=== PATIENT | male | born 1945 | race Caucasian/White ===

== ENCOUNTER → 2017-01-03 | Outpatient (CLI) | payer MEDICARE, BC ==
[~2017-01-03] MED LIST: AMIO200T42 PO; AMIO400T4 PO; ASPI-515 PO; ATOR80TA75 PO; CLOP75TA PO; DOCU-30 PO; FELO10TA PO; GLIP10TA13 PO; INSU100V8 SQ; METF10002 PO; METO25TA91 PO; OMEP-110 PO; PROC10TA78 PO; SITA100T PO; TRAM-28 PO; VALS1TAB30 PO
== END | disposition home or self-care (01) ==
LOC: CFH 10:45
PROVIDERS: ATTEND Internal Medicine Cardiovascular Disease
DX: I25.10 Atherosclerotic heart disease of native coronary artery without angina pectoris (principal); I10 Essential (primary) hypertension
CPT/HCPCS: 93306

== ENCOUNTER → 2018-01-17 | Outpatient (CLI) | payer MEDICARE, BC ==
[~2018-01-17] MED LIST changes: -AMIO400T4 PO; +AMIO400T5 PO; +ATOR-2 PO; -ATOR80TA75 PO; +DOCU-131 PO; -DOCU-30 PO; -TRAM-28 PO; +TRAM-47 PO
== END | disposition home or self-care (01) ==
LOC: CVU 09:17
PROVIDERS: ATTEND Internal Medicine Cardiovascular Disease
DX: I65.23 Occlusion and stenosis of bilateral carotid arteries (principal); E11.9 Type 2 diabetes mellitus without complications; I25.10 Atherosclerotic heart disease of native coronary artery without angina pectoris; I10 Essential (primary) hypertension; Z95.1 Presence of aortocoronary bypass graft; Z87.891 Personal history of nicotine dependence
CPT/HCPCS: 93880

== ENCOUNTER → 2018-12-13 | Outpatient (CLI) | payer MEDICARE, BC ==
[~2018-12-13] MED LIST changes: +CHLO25TA PO; +DONE10TA14 PO; +GLIP5TAB10 BC; +GLIP5TAB10 PO; +INSU100I18 SQ; +IRBE300T16 PO; +SPIR25TA PO
== END | disposition home or self-care (01) ==
LOC: CFH 08:37
PROVIDERS: ATTEND Internal Medicine Cardiovascular Disease
DX: I08.3 Combined rheumatic disorders of mitral, aortic and tricuspid valves (principal); I10 Essential (primary) hypertension; E78.5 Hyperlipidemia, unspecified; Z95.1 Presence of aortocoronary bypass graft; Z95.818 Presence of other cardiac implants and grafts; Z87.891 Personal history of nicotine dependence
CPT/HCPCS: 93306

== ENCOUNTER 2018-12-14 17:12 | Inpatient (IN) | payer MEDICARE, BC ==
[~2018-12-14] VITALS: Ht 188 cm; Wt 103.6 kg
[~2018-12-14 17:12] MED LIST changes: -CHLO25TA PO; -DONE10TA14 PO; -GLIP5TAB10 BC; -GLIP5TAB10 PO; -INSU100I18 SQ; -IRBE300T16 PO; -SPIR25TA PO
[2018-12-14 18:16] VITALS: BP 133/88
[2018-12-14] MEDS ORDERED: PLEASE ENTER HEIGHT AND WEIGHT MC SCH (19:00)
[2018-12-14] MEDS ORDERED: ONDANSETRON 2MG/ML, 2ML IVPush PRN (19:00)
[2018-12-14] MEDS ORDERED: morphine SULFATE 10 MG/ML, 1ML IVPush PRN (19:00)
[2018-12-14 19:27] LABS: BASOPHILS # (AUTO) 0.09 x10^3/uL (0-0.1); BASOPHILS % (AUTO) 1 % (0-1); EOSINOPHILS # (AUTO) 0.36 x10^3/uL (0-0.4); EOSINOPHILS % (AUTO) 5 % (1-7); LYMPHOCYTES # (AUTO) 1.76 x10^3/uL (1-3.4); LYMPHOCYTES % (AUTO) 23 % (22-44); MD NO; MEAN CORPUSCULAR HEMOGLOBIN 32.1 pg (27.5-34.5); MEAN CORPUSCULAR HGB CONC 33.6 g/dL (33.2-36.2); MEAN CORPUSCULAR VOLUME 95.5 fL (81-97); MEAN PLATELET VOLUME 9.5 fL (7.4-10.4); MONOCYTES # (AUTO) 0.94 x10^3/uL (0.2-0.8); MONOCYTES % (AUTO) 12 % (2-9); NEUTROPHILS # (AUTO) 4.57 x10^3/uL (1.8-6.8); NEUTROPHILS % (AUTO) 59 % (42-75); PLATELET COUNT 223 x10^3/uL (130-400); RED BLOOD COUNT 4.32 x10^6/uL (4.38-5.82); RED CELL DISTRIBUTION WIDTH 13.9 % (9.4-14.8)
[2018-12-14 19:33] LABS: INTERNATIONAL NORMALIZED RATIO 1.04 (0.93-1.1); PROTHROMBIN TIME 10.9 Seconds (9.6-11.5)
[2018-12-14 19:36] LABS: ANION GAP 7 mmol/L (5-15); CALCIUM 8.9 mg/dL (8.5-10.1); CHLORIDE 111 mmol/L (98-107); CREATININE 0.94 mg/dL (0.7-1.3)
[2018-12-14] MEDS ORDERED: DONE10TA14 PO (19:57)
[2018-12-14] MEDS ORDERED: IRBE300T16 PO (19:57)
[2018-12-14] MEDS ORDERED: GLIP5TAB10 PO (19:57)
[2018-12-14] MEDS ORDERED: CHLO25TA PO (19:57)
[2018-12-14] MEDS ORDERED: INSU100I18 SQ (19:57)
[2018-12-14] MEDS ORDERED: GLIP5TAB10 BC (19:57)
[2018-12-14] MEDS: ATORVASTATIN 80 MG TABLET PO SCH (20:41)
[2018-12-14] MEDS ORDERED: INSULIN GLARGINE 100 UNITS/ML, PEN SQ-INSULIN SCH (21:00)
[2018-12-14] MEDS: INSULIN GLARGINE 100 UNITS/ML, PEN SQ-INSULIN SCH (23:55)
[2018-12-14] MEDS: INSULIN LISPRO 100 UNITS/ML, PEN SQ-INSULIN SCH (23:55)
[2018-12-15 01:12] VITALS: BP 135/80
[2018-12-15 04:44] LABS: BASOPHILS # (AUTO) 0.08 x10^3/uL (0-0.1); BASOPHILS % (AUTO) 1 % (0-1); EOSINOPHILS # (AUTO) 0.49 x10^3/uL (0-0.4); EOSINOPHILS % (AUTO) 6 % (1-7); LYMPHOCYTES # (AUTO) 1.35 x10^3/uL (1-3.4); LYMPHOCYTES % (AUTO) 17 % (22-44); MD NO; MEAN CORPUSCULAR HEMOGLOBIN 31.7 pg (27.5-34.5); MEAN CORPUSCULAR VOLUME 96.1 fL (81-97); MONOCYTES # (AUTO) 1.09 x10^3/uL (0.2-0.8); MONOCYTES % (AUTO) 14 % (2-9); NEUTROPHILS # (AUTO) 5.01 x10^3/uL (1.8-6.8); NEUTROPHILS % (AUTO) 63 % (42-75); PLATELET COUNT 220 x10^3/uL (130-400); RED BLOOD COUNT 4.33 x10^6/uL (4.38-5.82); RED CELL DISTRIBUTION WIDTH 13.6 % (9.4-14.8)
[2018-12-15 04:53] LABS: ANION GAP 7 mmol/L (5-15); CALCIUM 8.9 mg/dL (8.5-10.1); CHLORIDE 112 mmol/L (98-107); CREATININE 0.88 mg/dL (0.7-1.3)
[2018-12-15 04:57] LABS: TROPONIN I 0.033 ng/mL (0.000-0.045)
[2018-12-15] MEDS: INSULIN LISPRO 100 UNITS/ML, PEN SQ-INSULIN SCH ×4 (07:00→21:07)
[2018-12-15 07:32] VITALS: BP 148/86
[2018-12-15] MEDS: CHLORTHALIDONE 25 MG TABLET PO SCH (08:41)
[2018-12-15] MEDS ORDERED: ASPIRIN 81 MG TABLET EC PO SCH (09:00)
[2018-12-15 12:32] VITALS: BP 142/88
[2018-12-15] MEDS: HEPARIN 5,000 UNITS/ML, 1ML SQ SCH ×2 (13:30→21:07)
[2018-12-15 19:43] VITALS: BP 138/85
[2018-12-15] MEDS: INSULIN GLARGINE 100 UNITS/ML, PEN SQ-INSULIN SCH (21:06)
[2018-12-15] MEDS: ASPIRIN 81 MG TABLET EC PO SCH (21:06)
[2018-12-15] MEDS: ATORVASTATIN 80 MG TABLET PO SCH (21:06)
[2018-12-16 02:51] VITALS: BP 129/72
[2018-12-16 06:14] VITALS: BP 137/86
[2018-12-16] MEDS: METOPROLOL SUCCINATE 100 MG TAB.ER.24H PO SCH (06:15)
[2018-12-16] MEDS: HEPARIN 5,000 UNITS/ML, 1ML SQ SCH ×3 (06:17→21:43)
[2018-12-16] MEDS: INSULIN LISPRO 100 UNITS/ML, PEN SQ-INSULIN SCH ×4 (07:00→21:42)
[2018-12-16] MEDS: CHLORTHALIDONE 25 MG TABLET PO SCH (07:45)
[2018-12-16 08:19] VITALS: BP 142/79
[2018-12-16 13:45] VITALS: BP 111/69
[2018-12-16 19:48] VITALS: BP 127/77
[2018-12-16] MEDS: ASPIRIN 81 MG TABLET EC PO SCH (21:14)
[2018-12-16] MEDS: ATORVASTATIN 80 MG TABLET PO SCH (21:14)
[2018-12-16] MEDS: INSULIN GLARGINE 100 UNITS/ML, PEN SQ-INSULIN SCH (21:42)
[2018-12-17 00:58] VITALS: BP 142/83
[2018-12-17 06:20] VITALS: BP 113/55
[2018-12-17] MEDS: METOPROLOL SUCCINATE 100 MG TAB.ER.24H PO SCH (06:21)
[2018-12-17] MEDS: HEPARIN 5,000 UNITS/ML, 1ML SQ SCH ×3 (06:22→20:51)
[2018-12-17 06:35] VITALS: BP 123/82
[2018-12-17] MEDS: INSULIN LISPRO 100 UNITS/ML, PEN SQ-INSULIN SCH ×4 (07:00→20:51)
[2018-12-17] MEDS: SPIRONOLACTONE 25 MG TABLET PO SCH (07:46)
[2018-12-17] MEDS: SODIUM CHLORIDE 0.9% 1,000 ML IV SCH (11:00)
[2018-12-17 12:23] VITALS: BP 111/73
[2018-12-17] MEDS ORDERED: MIDAZOLAM 1 MG/ML, 2ML ONE (12:39)
[2018-12-17] MEDS ORDERED: FENTANYL PF 100 MCG/2ML ONE (12:40)
[2018-12-17] MEDS ORDERED: LIDOCAINE 1%, 20ML ONE (12:40)
[2018-12-17] MEDS ORDERED: HEPARIN 1,000 UNITS/ML, 10ML ONE (13:08)
[2018-12-17 19:02] VITALS: BP 128/78
[2018-12-17] MEDS ORDERED: hydrALAzine 20 MG/ML, 1ML IV PRN (20:00)
[2018-12-17] MEDS: ASPIRIN 81 MG TABLET EC PO SCH (20:50)
[2018-12-17] MEDS: ATORVASTATIN 80 MG TABLET PO SCH (20:50)
[2018-12-17] MEDS: INSULIN GLARGINE 100 UNITS/ML, PEN SQ-INSULIN SCH (20:51)
[2018-12-17] MEDS ORDERED: TEMAZEPAM 15 MG CAPSULE PO PRN (21:00)
[2018-12-18 01:12] VITALS: BP 136/71
[2018-12-18 05:02] LABS: CALCIUM 8.7 mg/dL (8.5-10.1); CHLORIDE 108 mmol/L (98-107)
[2018-12-18 05:05] LABS: CREATININE 0.94 mg/dL (0.7-1.3)
[2018-12-18 05:06] LABS: ANION GAP 7 mmol/L (5-15)
[2018-12-18] MEDS: HEPARIN 5,000 UNITS/ML, 1ML SQ SCH ×2 (05:30→11:30)
[2018-12-18] MEDS: INSULIN LISPRO 100 UNITS/ML, PEN SQ-INSULIN SCH ×2 (07:00→11:30)
[2018-12-18] MEDS: SPIRONOLACTONE 25 MG TABLET PO SCH (07:18)
[2018-12-18 07:37] VITALS: BP 127/71
[2018-12-18] MEDS: METOPROLOL SUCCINATE 100 MG TAB.ER.24H PO SCH (08:36)
[2018-12-18] MEDS ORDERED: DOBUTAMINE/D5W PMX 250 ML ONE (09:17)
[2018-12-18] MEDS ORDERED: ATROPINE SYRINGE 0.1 MG/ML, 10ML ONE (09:18)
[2018-12-18] MEDS: SODIUM CHLORIDE 0.9% 1,000 ML IV SCH (11:30)
[2018-12-18] MEDS ORDERED: SPIR25TA PO (11:55)
[2018-12-19] MEDS ORDERED: FUROSEMIDE 20 MG TABLET PO SCH (09:00)
== END 2018-12-18 16:20 | disposition home or self-care (01) | DRG 286 ==
LOC: 5SO 18:11 → DCLOUNGE 12-18 16:00
PROVIDERS: ADMIT Internal Medicine; ATTEND Internal Medicine
PROC: 4A023N7 Measurement of Cardiac Sampling and Pressure, Left Heart, Percutaneous Approach (ICD-10-PCS; principal; 2018-12-17)
PROC: B2181ZZ Fluoroscopy of Left Internal Mammary Bypass Graft using Low Osmolar Contrast (ICD-10-PCS; 2018-12-17)
PROC: B2131ZZ Fluoroscopy of Multiple Coronary Artery Bypass Grafts using Low Osmolar Contrast (ICD-10-PCS; 2018-12-17)
PROC: B2111ZZ Fluoroscopy of Multiple Coronary Arteries using Low Osmolar Contrast (ICD-10-PCS; 2018-12-17)
PROC: B2151ZZ Fluoroscopy of Left Heart using Low Osmolar Contrast (ICD-10-PCS; 2018-12-17)
DX: I08.0 Rheumatic disorders of both mitral and aortic valves (principal); I50.43 Acute on chronic combined systolic (congestive) and diastolic (congestive) heart failure; I25.110 Atherosclerotic heart disease of native coronary artery with unstable angina pectoris; I11.0 Hypertensive heart disease with heart failure; E11.9 Type 2 diabetes mellitus without complications; E78.5 Hyperlipidemia, unspecified; F41.9 Anxiety disorder, unspecified; I25.5 Ischemic cardiomyopathy; I25.82 Chronic total occlusion of coronary artery; Z79.4 Long term (current) use of insulin; Z79.82 Long term (current) use of aspirin; Z79.899 Other long term (current) drug therapy; Z87.891 Personal history of nicotine dependence
CPT/HCPCS: 36415; 80048; 82962; 83735; 83880; 84484; 85025; 85610; 93017; 93350; 93459; 99156; 99157; C1760; C1769; C1894; G0378; J0461; J1644; J2250; J3010; J1250; J1815; J7030; Q9967

== ENCOUNTER → 2018-12-26 | Outpatient (CLI) | payer MEDICARE, BC ==
[~2018-12-26] MED LIST changes: +CHLO25TA PO; +DONE10TA14 PO; +GLIP5TAB10 BC; +GLIP5TAB10 PO; +INSU100I18 SQ; +IRBE300T16 PO; +OMNIPAQUE 350 MG/ML, 150 ML BOTTLE ONE; +SPIR25TA PO
== END | disposition home or self-care (01) ==
LOC: CVU 11:37
PROVIDERS: ATTEND Internal Medicine Cardiovascular Disease
DX: I65.23 Occlusion and stenosis of bilateral carotid arteries (principal); N28.1 Cyst of kidney, acquired; I70.203 Unspecified atherosclerosis of native arteries of extremities, bilateral legs; I35.0 Nonrheumatic aortic (valve) stenosis; E11.9 Type 2 diabetes mellitus without complications; I50.42 Chronic combined systolic (congestive) and diastolic (congestive) heart failure; I10 Essential (primary) hypertension; Z95.1 Presence of aortocoronary bypass graft
CPT/HCPCS: 71275; 74174; 93880; 94060; 94726; 94729; Q9967

== ENCOUNTER 2019-01-01 06:04 | Inpatient (IN) | payer MEDICARE, BC ==
[~2019-01-01] VITALS: Ht 188 cm; Wt 69.7 kg
[~2019-01-01 06:04] MED LIST changes: -OMNIPAQUE 350 MG/ML, 150 ML BOTTLE ONE
[2019-01-01] MEDS ORDERED: SODIUM CHLORIDE 0.9% 1,000 ML IV ONE (06:13)
[2019-01-01 06:23] VITALS: BP 136/80
[2019-01-01] MEDS ORDERED: CHLORHEXIDINE 15 ML UDC MM PRN (06:30)
[2019-01-01] MEDS ORDERED: ONDANSETRON 2MG/ML, 2ML IVPush PRN ×2 (06:30→09:00)
[2019-01-01] MEDS ORDERED: FENTANYL PF 250 MCG/5ML ONE (07:11)
[2019-01-01 07:14] LABS: BASOPHILS % (AUTO) 1 % (0-1); EOSINOPHILS # (AUTO) 0.61 x10^3/uL (0-0.4); EOSINOPHILS % (AUTO) 9 % (1-7); LYMPHOCYTES # (AUTO) 1.88 x10^3/uL (1-3.4); LYMPHOCYTES % (AUTO) 26 % (22-44); MD NO; MEAN CORPUSCULAR HEMOGLOBIN 31.8 pg (27.5-34.5); MEAN CORPUSCULAR HGB CONC 33.2 g/dL (33.2-36.2); MEAN CORPUSCULAR VOLUME 95.8 fL (81-97); MEAN PLATELET VOLUME 10.2 fL (7.4-10.4); MONOCYTES # (AUTO) 0.97 x10^3/uL (0.2-0.8); MONOCYTES % (AUTO) 14 % (2-9); NEUTROPHILS # (AUTO) 3.62 x10^3/uL (1.8-6.8); NEUTROPHILS % (AUTO) 50 % (42-75); PLATELET COUNT 250 x10^3/uL (130-400); RED BLOOD COUNT 4.64 x10^6/uL (4.38-5.82); RED CELL DISTRIBUTION WIDTH 13.4 % (9.4-14.8)
[2019-01-01 07:20] LABS: INTERNATIONAL NORMALIZED RATIO 0.96 (0.93-1.1); PROTHROMBIN TIME 10.1 Seconds (9.6-11.5)
[2019-01-01 07:22] LABS: ALANINE AMINOTRANSFERASE 53 U/L (12-78); ALBUMIN 3.6 g/dL (3.4-5.0); ANION GAP 6 mmol/L (5-15); CALCIUM 8.8 mg/dL (8.5-10.1); CHLORIDE 106 mmol/L (98-107); CREATININE 1.15 mg/dL (0.7-1.3)
[2019-01-01 07:26] LABS: ALKALINE PHOSPHATASE 99 U/L (45-117); BILIRUBIN,TOTAL 0.8 mg/dL (0.2-1.0); TOTAL PROTEIN 7.3 g/dL (6.4-8.2)
[2019-01-01] MEDS ORDERED: hydrALAzine 20 MG/ML, 1ML IVPush PRN (09:00)
[2019-01-01] MEDS ORDERED: LABETALOL 20 MG/4 ML IVPush PRN (09:00)
[2019-01-01] MEDS ORDERED: HYDROcodone/APAP 5/325 TABLET PO PRN (09:00)
[2019-01-01] MEDS ORDERED: LABETALOL 5 MG/ML SYRINGE IVPush PRN (09:30)
[2019-01-01] MEDS: DONEPEZIL 10 MG TABLET PO SCH (10:58)
[2019-01-01] MEDS: SPIRONOLACTONE 25 MG TABLET PO SCH (10:59)
[2019-01-01] MEDS: METOPROLOL SUCCINATE 100 MG TAB.ER.24H PO SCH (10:59)
[2019-01-01 11:23] VITALS: BP 130/76
[2019-01-01] MEDS: INSULIN REGULAR 100 UNITS/ML, 3ML VIAL SQ-INSULIN SCH ×3 (12:03→20:49)
[2019-01-01 14:29] VITALS: BP 123/68
[2019-01-01] MEDS ORDERED: PROPOFOL 10 MG/ML, 20ML ONE (14:34)
[2019-01-01] MEDS ORDERED: SUCCINYLCHOLINE 20 MG/ML, 10ML ONE (14:34)
[2019-01-01] MEDS ORDERED: CEFAZOLIN 1,000 MG ONE (14:34)
[2019-01-01] MEDS ORDERED: ROCURONIUM 10MG/ML,5ML ONE (14:34)
[2019-01-01] MEDS ORDERED: INSULIN LISPRO 100 UNITS/ML, PEN SQ-INSULIN SCH (17:00)
[2019-01-01 21:00] VITALS: BP 139/77
[2019-01-01] MEDS ORDERED: INSULIN GLARGINE 100 UNITS/ML, PEN SQ-INSULIN SCH (21:00)
[2019-01-01] MEDS ORDERED: ATORVASTATIN 80 MG TABLET PO SCH (21:00)
[2019-01-01] MEDS ORDERED: CLOPIDOGREL 300 MG TABLET PO ONE (21:00)
[2019-01-02 02:16] VITALS: BP 148/80
[2019-01-02] MEDS: ACETAMINOPHEN 325 MG TABLET PO PRN ×2 (04:49→09:29)
[2019-01-02 06:37] LABS: BASOPHILS # (AUTO) 0.09 x10^3/uL (0-0.1); BASOPHILS % (AUTO) 1 % (0-1); EOSINOPHILS # (AUTO) 0.32 x10^3/uL (0-0.4); EOSINOPHILS % (AUTO) 3 % (1-7); LYMPHOCYTES # (AUTO) 1.71 x10^3/uL (1-3.4); LYMPHOCYTES % (AUTO) 16 % (22-44); MD NO; MEAN CORPUSCULAR HEMOGLOBIN 31.5 pg (27.5-34.5); MEAN CORPUSCULAR HGB CONC 33.1 g/dL (33.2-36.2); MEAN CORPUSCULAR VOLUME 95.2 fL (81-97); MEAN PLATELET VOLUME 9.9 fL (7.4-10.4); MONOCYTES # (AUTO) 1.32 x10^3/uL (0.2-0.8); MONOCYTES % (AUTO) 13 % (2-9); NEUTROPHILS % (AUTO) 67 % (42-75); PLATELET COUNT 229 x10^3/uL (130-400); RED BLOOD COUNT 4.36 x10^6/uL (4.38-5.82); RED CELL DISTRIBUTION WIDTH 13.4 % (9.4-14.8)
[2019-01-02 06:42] LABS: ANION GAP 7 mmol/L (5-15); CALCIUM 8.9 mg/dL (8.5-10.1); CHLORIDE 109 mmol/L (98-107); CREATININE 0.92 mg/dL (0.7-1.3)
[2019-01-02] MEDS: INSULIN REGULAR 100 UNITS/ML, 3ML VIAL SQ-INSULIN SCH ×2 (07:00→11:00)
[2019-01-02 07:05] VITALS: BP 120/74
[2019-01-02] MEDS: DONEPEZIL 10 MG TABLET PO SCH (08:48)
[2019-01-02] MEDS: SPIRONOLACTONE 25 MG TABLET PO SCH (08:48)
[2019-01-02] MEDS: METOPROLOL SUCCINATE 100 MG TAB.ER.24H PO SCH (08:49)
[2019-01-02] MEDS ORDERED: CLOPIDOGREL 75 MG TABLET PO SCH (09:00)
[2019-01-02] MEDS ORDERED: ASPIRIN 81 MG TABLET EC PO SCH (09:00)
[2019-01-02] MEDS ORDERED: CLOP75TA PO (10:24)
[2019-01-02] MEDS ORDERED: IRBE150T49 PO (10:24)
[2019-01-02] MEDS ORDERED: ACET325T14 PO (10:24)
== END 2019-01-02 13:18 | disposition home or self-care (01) | DRG 266 ==
LOC: ORIP 06:04 → ICU 08:48 → 5SO 11:08 → DCLOUNGE 01-02 13:02
PROVIDERS: ADMIT Internal Medicine Cardiovascular Disease; ATTEND Internal Medicine Cardiovascular Disease
PROC: B246ZZ4 Ultrasonography of Right and Left Heart, Transesophageal (ICD-10-PCS; 2019-01-01)
PROC: 03HY32Z Insertion of Monitoring Device into Upper Artery, Percutaneous Approach (ICD-10-PCS; 2019-01-01)
PROC: 02RF38Z Replacement of Aortic Valve with Zooplastic Tissue, Percutaneous Approach (ICD-10-PCS; principal; 2019-01-01 07:30)
DX: I35.0 Nonrheumatic aortic (valve) stenosis (principal); Z00.6 Encounter for examination for normal comparison and control in clinical research program; I50.43 Acute on chronic combined systolic (congestive) and diastolic (congestive) heart failure; I25.10 Atherosclerotic heart disease of native coronary artery without angina pectoris; E11.9 Type 2 diabetes mellitus without complications; I48.0 Paroxysmal atrial fibrillation; E78.5 Hyperlipidemia, unspecified; I34.0 Nonrheumatic mitral (valve) insufficiency; I10 Essential (primary) hypertension; Z95.1 Presence of aortocoronary bypass graft; Z88.6 Allergy status to analgesic agent
CPT/HCPCS: 33361; 36415; 80048; 80053; 82962; 83880; 85025; 85347; 85610; 85730; 86850; 86900; 86923; 87081; 93005; 93306; 93312; 93321; 93325; 93355; C1760; C1769; C1894; G0378; J0690; J2704; J3010; J0330; J1815; J7030; Q9967

== ENCOUNTER → 2019-02-05 | Outpatient (CLI) | payer MEDICARE, BC ==
[~2019-02-05] MED LIST changes: +ACET325T14 PO; +IRBE150T49 PO
== END | disposition home or self-care (01) ==
LOC: CVU 10:32
PROVIDERS: ATTEND Internal Medicine Cardiovascular Disease
DX: I34.0 Nonrheumatic mitral (valve) insufficiency (principal); I10 Essential (primary) hypertension; E78.5 Hyperlipidemia, unspecified
CPT/HCPCS: 93306

== ENCOUNTER → 2019-10-10 | Outpatient (CLI) | payer MEDICARE, BC | END | disposition home or self-care (01) | LOC: CFH 06:54 | PROVIDERS: ATTEND Internal Medicine Cardiovascular Disease | DX: I08.1 Rheumatic disorders of both mitral and tricuspid valves (principal); I11.9 Hypertensive heart disease without heart failure; E78.5 Hyperlipidemia, unspecified; Z95.1 Presence of aortocoronary bypass graft | CPT/HCPCS: 93306 ==

== ENCOUNTER → 2019-11-01 | Outpatient (CLI) | payer MEDICARE, BC ==
[~2019-11-01] MED LIST changes: -FELO10TA PO; +FELO10TA4 PO; -IRBE300T16 PO; +IRBE300T8 PO; +REGADENOSON 0.4 MG/5 ML SYRINGE ONE
== END | disposition home or self-care (01) ==
LOC: CFH 11:52
PROVIDERS: ATTEND Internal Medicine Cardiovascular Disease
DX: I21.29 ST elevation (STEMI) myocardial infarction involving other sites (principal); I25.9 Chronic ischemic heart disease, unspecified; I42.9 Cardiomyopathy, unspecified; R06.02 Shortness of breath; I25.729 Atherosclerosis of autologous artery coronary artery bypass graft(s) with unspecified angina pectoris
CPT/HCPCS: 78452; 93017; A9502; J2785

== ENCOUNTER 2019-11-20 11:11 | Emergency (ER) | payer MEDICARE, BC ==
[~2019-11-20] VITALS: Ht 188 cm; Wt 96.8 kg
[~2019-11-20 11:11] MED LIST changes: -REGADENOSON 0.4 MG/5 ML SYRINGE ONE
--- NOTE | 2019-11-20 11:50 | NUR ---
PT AMBULATED TO THE BATHROOM WITH A STEADY GAIT. PER PTS ; PT IN FOR INCREASING PALPITATIONS AND INCREASING SHORTNESS OF BREATH.
[2019-11-20] MEDS ORDERED: SODIUM CHLORIDE FLUSH 10ML SYR IVF ONE (12:00)
[2019-11-20] MEDS ORDERED: METO200T47 PO (12:04)
[2019-11-20] MEDS ORDERED: INSU100V8 SQ (12:04)
[2019-11-20] MEDS ORDERED: SPIR25TA5 PO (12:19)
[2019-11-20 12:45] LABS: BASOPHILS # (AUTO) 0.09 x10^3/uL (0-0.1); BASOPHILS % (AUTO) 1 % (0-1); EOSINOPHILS # (AUTO) 0.39 x10^3/uL (0-0.4); EOSINOPHILS % (AUTO) 6 % (1-7); LYMPHOCYTES # (AUTO) 0.95 x10^3/uL (1-3.4); LYMPHOCYTES % (AUTO) 15 % (22-44); MD NO; MEAN CORPUSCULAR HEMOGLOBIN 31.1 pg (27.5-34.5); MEAN CORPUSCULAR HGB CONC 33.1 g/dL (33.2-36.2); MEAN CORPUSCULAR VOLUME 94.2 fL (81-97); MEAN PLATELET VOLUME 10.2 fL (7.4-10.4); MONOCYTES # (AUTO) 0.79 x10^3/uL (0.2-0.8); MONOCYTES % (AUTO) 13 % (2-9); NEUTROPHILS # (AUTO) 4.14 x10^3/uL (1.8-6.8); NEUTROPHILS % (AUTO) 65 % (42-75); PLATELET COUNT 221 x10^3/uL (130-400); RED CELL DISTRIBUTION WIDTH 17.6 % (9.4-14.8)
[2019-11-20 12:58] LABS: ANION GAP 9 mmol/L (5-15); CHLORIDE 107 mmol/L (98-107)
[2019-11-20 13:04] LABS: ALANINE AMINOTRANSFERASE 56 U/L (12-78); ALKALINE PHOSPHATASE 250 U/L (45-117); BILIRUBIN,TOTAL 1.7 mg/dL (0.2-1.0); CREATININE 1.13 mg/dL (0.7-1.3); T4 (THYROXINE) 10.3 mcg/dL (4.5-12.1); TOTAL PROTEIN 6.9 g/dL (6.4-8.2)
[2019-11-20] MEDS ORDERED: SODIUM CHLORIDE 0.9%, 500ML IVBOLUS ONE (13:30)
[2019-11-20] MEDS ORDERED: MAGNESIUM SULFATE PMX 2GM/50ML 50 ML IV ONE (13:30)
--- NOTE | 2019-11-20 14:11 | NUR ---
Son and at bedside. Medicated per emar. pt requesting food and inquiring if will be admitted.
--- NOTE | 2019-11-20 14:40 | NUR ---
Discussed discharge paperwork with pt and pts . Perscripition give. All questions and concerns addressed and answered. pt and pts verbalized understanding regarding discharge process and that they can discharge after IV mag and NS is compelted.
[2019-11-20 14:54] VITALS: BP 109/76
--- NOTE | 2019-11-20 16:46 | NUR ---
Patient/Caregiver given discharge instructions and they have confirmed that they understand the instructions. Patient ambulatory with steady gait.
== END 2019-11-20 16:47 | disposition home or self-care (01) ==
LOC: ED 15:08
DX: E83.42 Hypomagnesemia (principal); I11.0 Hypertensive heart disease with heart failure; I50.9 Heart failure, unspecified; R06.00 Dyspnea, unspecified; I25.10 Atherosclerotic heart disease of native coronary artery without angina pectoris; E11.9 Type 2 diabetes mellitus without complications; E78.5 Hyperlipidemia, unspecified; Z87.891 Personal history of nicotine dependence; Z95.1 Presence of aortocoronary bypass graft
CPT/HCPCS: 36415; 71045; 80053; 83605; 83735; 83880; 84436; 84443; 84484; 85025; 93005; 96365; 99285; J3475; J7040

== ENCOUNTER → 2020-03-18 | Outpatient (CLI) | payer MEDICARE, BC ==
[~2020-03-18] MED LIST changes: +METO200T47 PO; +SPIR25TA5 PO
== END | disposition home or self-care (01) ==
LOC: CVU 08:31
PROVIDERS: ATTEND Internal Medicine Cardiovascular Disease
DX: I08.0 Rheumatic disorders of both mitral and aortic valves (principal); I10 Essential (primary) hypertension
CPT/HCPCS: 93306; 93356

== ENCOUNTER 2020-07-30 10:48 | Day surgery (SDC) | payer MEDICARE, BC ==
[~2020-07-30] VITALS: Ht 188 cm; Wt 104.5 kg
[2020-07-30] MEDS ORDERED: L.AC1CAP6 PO (11:29)
[2020-07-30] MEDS ORDERED: SACU1TAB7 PO (11:29)
[2020-07-30] MEDS ORDERED: AMIO200T42 PO (11:29)
[2020-07-30] MEDS ORDERED: FURO20TA3 PO (11:29)
[2020-07-30] MEDS ORDERED: LIPA1CAP45 PO (11:29)
[2020-07-30] MEDS ORDERED: ONDA4TAB13 SL (11:29)
[2020-07-30] MEDS ORDERED: RIVA20TA PO (11:29)
[2020-07-30] MEDS ORDERED: CLOP75TA PO (11:29)
[2020-07-30] MEDS ORDERED: MAGN400T36 PO (11:29)
[2020-07-30] MEDS ORDERED: PLEASE ENTER HEIGHT AND WEIGHT MC SCH (11:30)
[2020-07-30] MEDS ORDERED: SODIUM CHLORIDE 0.9% 1,000 ML IV SCH (11:30)
[2020-07-30] MEDS ORDERED: SODIUM CHLORIDE 0.9% 1,000 ML IV ONE (11:30)
[2020-07-30 11:32] VITALS: BP 151/70
[2020-07-30 12:18] LABS: MEAN CORPUSCULAR HEMOGLOBIN 34.1 pg (27.5-34.5); MEAN CORPUSCULAR HGB CONC 33.5 g/dL (33.2-36.2); PLATELET COUNT 122 x10^3/uL (130-400); RED BLOOD COUNT 4.15 x10^6/uL (4.38-5.82); RED CELL DISTRIBUTION WIDTH 13.2 % (9.4-14.8)
[2020-07-30] MEDS ORDERED: ISOPROTERENOL 0.2MG/ML, 5ML ONE (12:26)
[2020-07-30] MEDS ORDERED: FENTANYL PF 100 MCG/2ML ONE (12:26)
[2020-07-30] MEDS ORDERED: ADENOSINE 6 MG/2 ML ONE (12:26)
[2020-07-30] MEDS ORDERED: MIDAZOLAM 1 MG/ML, 5ML ONE (12:26)
[2020-07-30] MEDS ORDERED: LIDOCAINE 2%, 20ML ONE (12:27)
[2020-07-30 12:29] LABS: INTERNATIONAL NORMALIZED RATIO 1.08 (0.93-1.1)
[2020-07-30 12:32] LABS: ANION GAP 6 mmol/L (5-15); CALCIUM 8.6 mg/dL (8.5-10.1); CHLORIDE 114 mmol/L (98-107)
[2020-07-30 12:44] LABS: PROTHROMBIN TIME 11.4 Seconds (9.6-11.5)
[2020-07-30] MEDS ORDERED: MIDAZOLAM 1 MG/ML, 2ML ONE (12:50)
[2020-07-30] MEDS ORDERED: FENTANYL PF 250 MCG/5ML ONE (12:50)
[2020-07-30] MEDS ORDERED: PROPOFOL 50 ML ONE (12:50)
[2020-07-30 12:51] LABS: MD YES
[2020-07-30 12:52] LABS: BAND#(MANUAL) 0.35 x10^3/uL; BANDS%(MANUAL) 5 % (0-7); EOS#(MANUAL) 1.38 x10^3/uL (0.0-0.4); EOS% (MANUAL) 20 % (1-7); LYMPH#(MANUAL) 1.38 x10^3/uL (1-3.4); LYMPHS% (MANUAL) 20 % (22-44); MONOS% (MANUAL) 13 % (2-9); SEGS% (MANUAL) 42 % (42-75)
[2020-07-30 12:53] LABS: <PLATELET ESTIMATE> DECREASED; <PLT MORPHOLOGY> NORMAL PLT MORPH; ANISOCYTOSIS 1+
[2020-07-30] MEDS ORDERED: DEXAMETHASONE 4 MG/ML, 1ML ONE (12:56)
[2020-07-30] MEDS ORDERED: ROCURONIUM 10 MG/ML,10ML ONE (12:56)
[2020-07-30] MEDS ORDERED: ONDANSETRON 2MG/ML, 2ML ONE (12:56)
[2020-07-30] MEDS ORDERED: SUCCINYLCHOLINE 20 MG/ML, 10ML ONE (12:56)
[2020-07-30] MEDS ORDERED: DIPHENHYDRAMINE 50 MG/ML, 1ML IVPush PRN (15:00)
[2020-07-30] MEDS ORDERED: EPHEDRINE 50 MG/ML, 1ML IM PRN (15:00)
[2020-07-30] MEDS ORDERED: FENTANYL PF 100 MCG/2ML IV PRN (15:00)
[2020-07-30] MEDS ORDERED: OXYcodone 5 MG/5 ML ORAL.SOL UDC PO PRN (15:00)
[2020-07-30] MEDS ORDERED: EPHEDRINE 50 MG/ML, 1ML IVPush PRN (15:00)
[2020-07-30] MEDS ORDERED: ACETAMINOPHEN 325 MG TABLET PO PRN (15:00)
[2020-07-30] MEDS ORDERED: PROMETHAZINE 25 MG/ML, 1ML IVPush PRN (15:00)
[2020-07-30] MEDS ORDERED: DIAZEPAM 5 MG/ML, 2ML IVPush PRN (15:00)
[2020-07-30] MEDS ORDERED: ONDANSETRON 2MG/ML, 2ML IVPush PRN (15:00)
[2020-07-30] MEDS ORDERED: morphine SULFATE 10 MG/ML, 1ML IVPush PRN (15:00)
[2020-07-30] MEDS ORDERED: EPHEDRINE 50 MG/ML, 1ML ONE ×2 (15:11→15:34)
== END 2020-07-30 21:05 | disposition home or self-care (01) ==
LOC: CACL 10:48 → 5SO 16:03 → CACL 21:05
PROVIDERS: ATTEND Internal Medicine Clinical Cardiac Electrophysiology
DX: I48.92 Unspecified atrial flutter (principal); I42.9 Cardiomyopathy, unspecified; I25.10 Atherosclerotic heart disease of native coronary artery without angina pectoris; I34.0 Nonrheumatic mitral (valve) insufficiency; I11.0 Hypertensive heart disease with heart failure; I50.9 Heart failure, unspecified; E78.5 Hyperlipidemia, unspecified; E11.9 Type 2 diabetes mellitus without complications; Z79.01 Long term (current) use of anticoagulants; Z79.4 Long term (current) use of insulin; Z79.899 Other long term (current) drug therapy; Z88.5 Allergy status to narcotic agent; Z95.5 Presence of coronary angioplasty implant and graft; Z95.2 Presence of prosthetic heart valve
CPT/HCPCS: 36415; 71046; 80048; 85025; 85610; 93005; 93312; 93321; 93325; 93613; 93653; C1730; C1732; C1769; C1894; J0330; J1100; J2250; J2405; J2704; J3010; G0378; J0153

== ENCOUNTER 2020-08-28 06:01 | Observation (INO) | payer MEDICARE, BC ==
[~2020-08-28] VITALS: Ht 188 cm; Wt 97.8 kg
[~2020-08-28 06:01] MED LIST changes: +FURO20TA3 PO; +L.AC1CAP6 PO; +LIPA1CAP45 PO; +MAGN400T36 PO; +ONDA4TAB13 SL; +RIVA20TA PO; +SACU1TAB7 PO
[2020-08-28] MEDS ORDERED: SODIUM CHLORIDE 0.9% 1,000 ML IV SCH (06:30)
[2020-08-28] MEDS ORDERED: EMPA25TA PO (06:36)
[2020-08-28 07:00] VITALS: BP 151/76
[2020-08-28] MEDS ORDERED: MIDAZOLAM 1 MG/ML, 5ML ONE (07:02)
[2020-08-28] MEDS ORDERED: FENTANYL PF 100 MCG/2ML ONE (07:02)
[2020-08-28] MEDS ORDERED: LIDOCAINE 2%, 20ML ONE (07:02)
[2020-08-28] MEDS ORDERED: CEFAZOLIN PMX 1GM/50ML 50 ML ONE ×2 (07:02→07:08)
[2020-08-28] MEDS ORDERED: CEFAZOLIN 1,000 MG ONE (07:02)
[2020-08-28] MEDS ORDERED: ACETAMINOPHEN 325 MG TABLET PO PRN (09:00)
[2020-08-28] MEDS ORDERED: FUROSEMIDE 20 MG TABLET PO SCH (09:00)
[2020-08-28] MEDS ORDERED: HOLD MEDICATION MC PRN (09:00)
[2020-08-28] MEDS ORDERED: ONDANSETRON ODT 4 MG SL PRN (09:00)
[2020-08-28] MEDS ORDERED: SPIRONOLACTONE 25 MG TABLET PO SCH (09:00)
[2020-08-28] MEDS: SODIUM CHLORIDE FLUSH 10ML SYR IVF SCH ×2 (09:00→22:05)
[2020-08-28] MEDS ORDERED: INSULIN GLARGINE 100 UNITS/ML, PEN SQ-INSULIN SCH ×2 (09:00→21:00)
[2020-08-28] MEDS: INSULIN LISPRO 100 UNITS/ML, PEN SQ-INSULIN SCH ×3 (09:00→21:00)
[2020-08-28 10:39] VITALS: BP 148/72
[2020-08-28 14:15] VITALS: BP 146/76
[2020-08-28] MEDS ORDERED: RIVAROXABAN 20 MG TABLET PO SCH (16:30)
[2020-08-28 20:30] VITALS: BP 149/80
[2020-08-28] MEDS ORDERED: ATORVASTATIN 80 MG TABLET PO SCH (21:00)
[2020-08-29 00:34] VITALS: BP 147/82
[2020-08-29 07:52] VITALS: BP 133/83
== END 2020-08-29 10:20 | disposition home or self-care (01) ==
LOC: CACL 06:01 → ORIP 08:43 → 5SO 08:55 → CACL 09:06 → 5SO 09:36 → DCLOUNGE 08-29 10:13
PROVIDERS: ADMIT Internal Medicine Clinical Cardiac Electrophysiology; ATTEND Internal Medicine Clinical Cardiac Electrophysiology
DX: I48.0 Paroxysmal atrial fibrillation (principal); I48.92 Unspecified atrial flutter; I49.5 Sick sinus syndrome; I25.119 Atherosclerotic heart disease of native coronary artery with unspecified angina pectoris; E11.9 Type 2 diabetes mellitus without complications; I11.0 Hypertensive heart disease with heart failure; I50.9 Heart failure, unspecified; E78.00 Pure hypercholesterolemia, unspecified; Z95.1 Presence of aortocoronary bypass graft; Z79.899 Other long term (current) drug therapy
CPT/HCPCS: 33208; 71045; 82962; 93005; 99156; 99157; C1779; C1785; C1892; G0378; J0690; J1815; J2250; J3010; J3490